=== PATIENT | female | born 1985 | race Caucasian/White ===

== ENCOUNTER 2017-10-19 19:30 | Outpatient (CLI) | payer OTHER, SELFPAY ==
[2017-10-19 21:21] LABS: APPEARANCE, URINE HAZY (CLEAR); BACTERIA, URINE AUTO NEGATIVE (NEGATIVE); BILIRUBIN, URINE AUTO NEGATIVE (NEGATIVE); BLOOD, URINE BLOOD NEGATIVE (NEGATIVE); COLOR, URINE YELLOW (YELLOW); GLUCOSE, URINE (UA) AUTO NEGATIVE (NEGATIVE); KETONE, URINE AUTO 2+ mg/dL (NEGATIVE); LEUKOCYTE ESTERASE, URINE AUTO NEGATIVE (NEGATIVE); MUCUS, URINE SMALL (NEGATIVE); NITRITE, URINE AUTO NEGATIVE (NEGATIVE); PROTEIN, URINE AUTO NEGATIVE (NEGATIVE); RBC, URINE AUTO 5 /HPF (0-3); SPECIFIC GRAVITY URINE AUTO 1.012 (1.002-1.035); SQUAMOUS EPITHELIAL CELL UR AU 4 /HPF (0-6); UROBILINOGEN, URINE AUTO 0.2 mg/dL (0.0-2.0); WBC, URINE AUTO 2 /HPF (0-3)
== END 2017-10-19 22:33 | disposition home or self-care (01) ==
LOC: M LDO 19:30
DX: O47.03 False labor before 37 completed weeks of gestation, third trimester (principal); Z3A.32 32 weeks gestation of pregnancy
CPT/HCPCS: 59025

== ENCOUNTER → 2019-04-29 | Outpatient (REF) | payer OTHER ==
[2019-04-29 18:29] LABS: HCG, SERUM QUANTITATIVE 44866 MIU/ML; HEMATOCRIT 30.6 % (36.0-47.0); HEMOGLOBIN 9.7 g/dl (12.0-15.5); MEAN CORPUSCULAR HEMOGLOBIN 26.4 pg (27.0-33.0); MEAN CORPUSCULAR HGB CONC 31.7 g/dl (32.0-36.5); MEAN CORPUSCULAR VOLUME 83.4 fl (80.0-96.0); PLATELET COUNT, AUTOMATED 269 10^3/uL (150-450); RED BLOOD COUNT 3.67 10^6/uL (4.00-5.40); WHITE BLOOD COUNT 7.8 10^3/uL (4.0-10.0)
[2019-04-30 12:31] LABS: RUBELLA IgG QUALITATIVE IMMUNE (IMMUNE)
[2019-04-30 13:01] LABS: HEPATITIS C VIRUS ABY INDEX 0.1 INDEX (<0.8); HIV 1&2 SCREEN CENTAUR NEGATIVE (NEGATIVE)
== END ==
LOC: M LAB REF 16:51
PROVIDERS: ATTEND Obstetrics & Gynecology
DX: O36.80X0 Pregnancy with inconclusive fetal viability, not applicable or unspecified (principal); Z3A.00 Weeks of gestation of pregnancy not specified

== ENCOUNTER → 2019-09-30 | Outpatient (REF) | payer OTHER ==
[~2019-09-30] MED LIST: PRENTAB9 PO; TUMS500C PO
== END ==
LOC: M LAB REF 16:31
PROVIDERS: ATTEND Obstetrics & Gynecology
DX: Z34.83 Encounter for supervision of other normal pregnancy, third trimester (principal)

== ENCOUNTER → 2019-10-13 | Outpatient (CLI) | payer OTHER ==
[~2019-10-13] MED LIST changes: +IBUP80TA PO; +QC A650T3 PO
== END ==
LOC: M LABSMTC 11:08
PROVIDERS: ATTEND Anesthesiology
DX: Z01.818 Encounter for other preprocedural examination (principal); Z11.59 Encounter for screening for other viral diseases

== ENCOUNTER 2019-10-16 05:09 | Inpatient (IN) | payer OTHER ==
[2019-10-16] VITALS (9 sets, daily range): BP systolic 99–136; BP diastolic 55–84
[~2019-10-16] VITALS: Ht 165.1 cm; Wt 70.1 kg
[~2019-10-16 05:09] MED LIST changes: -IBUP80TA PO; -QC A650T3 PO
[2019-10-16] MEDS ORDERED: LR 1,000 ML IV SCH (05:37)
[2019-10-16] MEDS ORDERED: NS 1,000 ML IV SCH (05:37)
[2019-10-16] MEDS ORDERED: LACTATED RINGER'S 1000 ML IV STA (05:37)
[2019-10-16] MEDS ORDERED: QC A650T3 PO (05:42)
[2019-10-16] MEDS ORDERED: ceFAZolin SOD 2 GM in IV 1 EA IV ONE (05:45)
[2019-10-16] MEDS ORDERED: BICITRA 30ML SOLN UDC PO ONE (05:45)
[2019-10-16 06:31] LABS: HEMATOCRIT 26.2 % (36.0-47.0); HEMOGLOBIN 7.6 g/dl (12.0-15.5); MEAN CORPUSCULAR HEMOGLOBIN 22.5 pg (27.0-33.0); MEAN CORPUSCULAR VOLUME 77.5 fl (80.0-96.0); PLATELET COUNT, AUTOMATED 265 10^3/uL (150-450); RED BLOOD COUNT 3.38 10^6/uL (4.00-5.40); WHITE BLOOD COUNT 9.1 10^3/uL (4.0-10.0)
[2019-10-16] MEDS ORDERED: METOCLOPRAMIDE INJ 10MG/2ML VIAL (J2765 PER 1) IV PRN (08:13)
[2019-10-16] MEDS ORDERED: diphenhydrAMINE 50MG/ML VIAL (J1200) IV PRN (08:13)
[2019-10-16] MEDS ORDERED: NALOXONE INJ 0.4MG/1ML VIAL (J2310 PER 1MG) IV PRN ×2 (08:13)
[2019-10-16] MEDS ORDERED: NALBUPHINE HCL 10 MG/ML AMP (J2300) IV PRN ×2 (08:13→09:45)
[2019-10-16] MEDS ORDERED: ONDANSETRON 4MG/2ML VIAL IV PRN ×2 (08:13→09:45)
[2019-10-16] MEDS ORDERED: PHENYLephrine HCL 500 MCG/5 ML (100MCG/ML) SYRINGE (J2370) As Ordered ONE (08:35)
[2019-10-16] MEDS ORDERED: OXYTOCIN INJ 10 UNITS/ML VIAL (J2590) As Ordered ONE (08:35)
[2019-10-16] MEDS ORDERED: MORPHINE PRES-FREE INJ 10 MG/10 ML VIAL (J2274) As Ordered ONE (08:35)
[2019-10-16 08:43] LABS: CORD GAS HCO3 V 19.3 MEQ/L; CORD GAS O2 SAT V 47.4 %; CORD GAS PCO2 V 34.2 mmHg; CORD GAS PH V 7.37 UNITS; CORD GAS PO2 V 19.9 mmHg; CORD GAS SBC V 19.2 MEQ/L; CORD GAS TCO2 V 20.4 MEQ/L
[2019-10-16 08:49] LABS: CORD GAS ABE A -5.2; CORD GAS HCO3 A 20.7 MEQ/L; CORD GAS O2 SAT A 37.5 %; CORD GAS PCO2 A 41.6 mmHg; CORD GAS PH A 7.314 UNITS; CORD GAS PO2 A 18.4 mmHg; CORD GAS SBC A 18.8 MEQ/L; CORD GAS TCO2 A 21.9 MEQ/L
[2019-10-16] MEDS: PRENATAL VITAMINS CHEWABLE TABLET PO SCH (09:00)
[2019-10-16] MEDS ORDERED: OXYTOCIN DRIP 30 UNITS in IV 1 EA IV SCH (09:10)
[2019-10-16] MEDS ORDERED: ONDANSETRON 4 MG TAB PO PRN (09:15)
[2019-10-16] MEDS ORDERED: MEASLES,MUMPS,RUBELLA VACCINE INJ (MMR-II) (90707) SC SCH (09:15)
[2019-10-16] MEDS ORDERED: ACETAMINOPHEN 500 MG TAB PO PRN (09:15)
[2019-10-16] MEDS ORDERED: MOM 30ML SUSPENSION UDC PO PRN (09:15)
[2019-10-16] MEDS ORDERED: RHOGAM 300 MCG (1500 IU) INJ (J2790) IM SCH (09:15)
[2019-10-16] MEDS ORDERED: fentaNYL 100 MCG/2 ML INJECTION (J3010) IV PRN (09:45)
[2019-10-16] MEDS: KETOROLAC 30 MG/ML 1ML VIAL IV SCH ×3 (10:50→22:49)
[2019-10-16 14:57] LABS: HEMATOCRIT 28.9 % (36.0-47.0); MEAN CORPUSCULAR HEMOGLOBIN 22.3 pg (27.0-33.0); MEAN CORPUSCULAR HGB CONC 27.7 g/dl (32.0-36.5); MEAN CORPUSCULAR VOLUME 80.5 fl (80.0-96.0); PLATELET COUNT, AUTOMATED 213 10^3/uL (150-450); RED BLOOD COUNT 3.59 10^6/uL (4.00-5.40); WHITE BLOOD COUNT 14.1 10^3/uL (4.0-10.0)
[2019-10-16] MEDS ORDERED: PROMETHAZINE INJ 25 MG/ML VIAL (J2550) IV PRN (17:00)
[2019-10-16] MEDS: DOCUSATE SODIUM 100 MG CAP PO SCH (20:03)
[2019-10-17 02:00] VITALS: BP 123/56
[2019-10-17] MEDS: KETOROLAC 30 MG/ML 1ML VIAL IV SCH (05:02)
[2019-10-17 05:57] VITALS: BP 109/54
[2019-10-17] MEDS ORDERED: IBUP80TA PO (07:40)
[2019-10-17 07:55] LABS: HEMATOCRIT 23.7 % (36.0-47.0); MEAN CORPUSCULAR HEMOGLOBIN 22.6 pg (27.0-33.0); MEAN CORPUSCULAR HGB CONC 29.1 g/dl (32.0-36.5); MEAN CORPUSCULAR VOLUME 77.7 fl (80.0-96.0); PLATELET COUNT, AUTOMATED 247 10^3/uL (150-450); RED BLOOD COUNT 3.05 10^6/uL (4.00-5.40); WHITE BLOOD COUNT 10.8 10^3/uL (4.0-10.0)
[2019-10-17 07:59] LABS: HEMOGLOBIN 6.9 g/dl (12.0-15.5)
[2019-10-17] MEDS: DOCUSATE SODIUM 100 MG CAP PO SCH ×2 (09:10→20:37)
[2019-10-17] MEDS: PRENATAL VITAMINS CHEWABLE TABLET PO SCH (09:10)
[2019-10-17 10:00] VITALS: BP 124/57
[2019-10-17] MEDS: NORCO, ANEXSIA 5/325MG TABLET (HYDROcodone/ACETAMINOPHEN) PO PRN ×3 (11:36→23:11)
[2019-10-17] MEDS: IBUPROFEN 800 MG TAB PO SCH ×2 (12:23→20:37)
[2019-10-17 18:00] VITALS: BP 122/56
[2019-10-18] MEDS: IBUPROFEN 800 MG TAB PO SCH (05:42)
[2019-10-18 06:12] VITALS: BP 124/63
[2019-10-18] MEDS: DOCUSATE SODIUM 100 MG CAP PO SCH (07:34)
[2019-10-18] MEDS: PRENATAL VITAMINS CHEWABLE TABLET PO SCH (07:34)
[2019-10-18] MEDS: NORCO, ANEXSIA 5/325MG TABLET (HYDROcodone/ACETAMINOPHEN) PO PRN (07:34)
[2019-10-18 08:32] LABS: HEMATOCRIT 23.4 % (36.0-47.0); MEAN CORPUSCULAR HEMOGLOBIN 23.1 pg (27.0-33.0); MEAN CORPUSCULAR HGB CONC 29.1 g/dl (32.0-36.5); MEAN CORPUSCULAR VOLUME 79.3 fl (80.0-96.0); PLATELET COUNT, AUTOMATED 257 10^3/uL (150-450); RED BLOOD COUNT 2.95 10^6/uL (4.00-5.40); WHITE BLOOD COUNT 10.5 10^3/uL (4.0-10.0)
--- NOTE | 2019-10-18 08:34 | OBDS ---
[facility] Obstetrical Discharge Sum. Obstetrical Discharge Summary Date: October 18, 2019 : 4 Term: 4 Pre-term: 0 Abortions: 0 Livin VDRL: Non-Reactive Rh: Negative Rubella: Immune Infant Sex: Male Anesthesia: Regional Anesthesia A/P, Post Course List any complications Admission diagnosis: .Term with history of c/s time 4 Discharge diagnosis: Same Condition at Discharge: [Stable] Discharge Instructions: [See instruction. Nothing in vagina for 6 weeks.] Activity: [as tolerated ] Diet: [regular] Medications: [see list] Follow-up: [2 weeks] Other: Cody Urena DO October 18, 2019 08:34
[2019-10-18 08:42] LABS: HEMOGLOBIN 6.8 g/dl (12.0-15.5)
== END 2019-10-18 10:45 | disposition home or self-care (01) | DRG 540 ==
LOC: M LDI 05:09 → M OBS 10:14
PROVIDERS: ADMIT Obstetrics & Gynecology; ATTEND Obstetrics & Gynecology
PROC: 0UB70ZZ Excision of Bilateral Fallopian Tubes, Open Approach (ICD-10-PCS; 2019-10-16)
PROC: 10D00Z1 Extraction of Products of Conception, Low, Open Approach (ICD-10-PCS; principal; 2019-10-16 07:30)
DX: O34.211 Maternal care for low transverse scar from previous cesarean delivery (principal); Z37.0 Single live birth; Z3A.39 39 weeks gestation of pregnancy